=== PATIENT | female | born 1975 | race Caucasian/White ===

== ENCOUNTER → 2017-11-22 | Outpatient (CLI) | payer BC ==
--- NOTE | 2017-11-22 21:39 | Diagnostic Imaging Report ---
EXAMINATION: MRI of the lumbar spine without contrast HISTORY: Low back pain, right lower extremity numbness, evaluate for disc herniation COMPARISON: None. TECHNIQUE: Sagittal T1, T2, STIR; axial T2 and proton density. FINDINGS: It is assumed that there are 5 lumbar vertebrae. Curvature/Alignment: Normal lordosis. Vertebrae: No evidence of recent fracture, infection, or neoplasm. Conus: Normal, terminating at L1 Cauda equina: Unremarkable. Lower thoracic: Unremarkable. Paraspinal soft tissues: Unremarkable. Degenerative changes: L1-L2: Unremarkable. L2-L3: Unremarkable. L3-L4: Unremarkable. L4-L5: Minimal symmetric disc bulge, moderate facet arthropathy. No canal or foraminal stenosis. L5-S1: -Prominent decreased disc height and T2 signal intensity, symmetric disc bulge, marginal endplate osteophytes. Chronic endplate degenerative changes and moderate facet arthrosis. The degenerative changes are disproportionate to the remaining levels and may represent sequela from prior trauma or infection, only in the appropriate clinical setting. -No significant spinal canal or foraminal stenoses. No evidence of nerve root compression. IMPRESSION: 1. Prominent spondylosis at L5-S1 and moderate facet arthrosis. No significant spinal canal or foraminal stenoses. No evidence of fluid compression. 2. Minimal degenerative changes at L4-L5 without canal or foraminal stenosis. Signed by: Dr. Jennifer Ashford M.D. on 11/22/2017 9:36 PM
== END ==
LOC: MRI 11:36
PROVIDERS: ATTEND Family Medicine
DX: M51.26 Other intervertebral disc displacement, lumbar region (principal)
CPT/HCPCS: 72148